=== PATIENT | male | born 1960 | race Caucasian/White ===

== ENCOUNTER → 2017-06-03 | Outpatient (CLI) | payer OTHER ==
[~2017-06-03] MED LIST: ASPI81EC PO; CYCL10 PO; HYDACE5 PO; LISHYD2012 PO; LISI10 PO; MECL12.5 PO; MELO7.5 PO; METCAR500 PO; METF850 PO; METO50ER PO; OXYACE5T PO; PRAV20 PO; RANI150 PO; RXOXYACE PO; TRAM50 PO; TRAZ100 PO
== END | disposition home or self-care (01) ==
LOC: LAB SHORT 12:21 → LAB EV 12:21
DX: R50.9 Fever, unspecified (principal)
CPT/HCPCS: 87070

== ENCOUNTER 2024-10-09 18:50 | Emergency (ER) | payer MEDICARE, OTHER ==
[~2024-10-09] VITALS: Ht 185.4 cm; Wt 85.7 kg
[2024-10-09 19:45] VITALS: BP 161/95
[2024-10-09] MEDS ORDERED: Ketorolac Tromethamine 15mg Vial IM ONE (19:50)
[2024-10-09] MEDS ORDERED: Ketorolac Tromethamine 15mg Vial IV ONE (21:45)
[2024-10-09] MEDS ORDERED: Ondansetron HCl 2 MG / ML 2ML Vial IV ONE (21:50)
== END 2024-10-09 23:13 | disposition home or self-care (01) ==
LOC: ER 18:50
DX: M25.562 Pain in left knee (principal); F17.200 Nicotine dependence, unspecified, uncomplicated; Z53.29 Procedure and treatment not carried out because of patient's decision for other reasons; Z88.5 Allergy status to narcotic agent; Z79.84 Long term (current) use of oral hypoglycemic drugs; Z79.82 Long term (current) use of aspirin; Z79.899 Other long term (current) drug therapy
CPT/HCPCS: 73562-LT; J1885